=== PATIENT | female | born 1950 | race Caucasian/White ===

== ENCOUNTER 2016-12-31 00:32 | Emergency (ER) | payer OTHER ==
[2016-12-31] MEDS: ACETAMINOPHEN 500 MG TABLET PO STA (00:54)
[2016-12-31] MEDS: ONDANSETRON ODT 4 MG TABLET TL STA (00:55)
--- NOTE | 2016-12-31 00:56 | ED Physician Documentation ---
PD HPI URI - Stated complaint Stated Complaint: VOMITING - Chief complaint Chief Complaint: General - History obtained from History obtained from: Patient, Family - History of Present Illness Timing - onset: How many days ago (2) Timing details: Gradual onset, Still present Associated symptoms: Fever, Chills, Ear pain, Nasal congestion, Rhinorrhea, Sore throat, Dry cough, NVD Contributing factors: Sick contact Improves by: Rest Similar symptoms before: No diagnosis Recently seen: Not recently seen - Additional information Additional information: Patient is a 66 year old female with a history of htn who is presenting to the emergency department for a viral syndrome. Patient states that for the last few days she has had sore throat, cough, diarrhea, and nausea. Patient states that her nephew has been sick at home with similar symptoms. Patient states that she was worried tonight because when she was trying to swallow it felt like her throat was closing. Patient states that she was stung by a bee yesterday but doesn't have any other symptoms from the bee sting, and didn't have any symptoms yesterday after the sting. Review of Systems Constitutional: reports: Fever, Chills Eyes: denies: Loss of vision, Decreased vision, Photophobia, Irritation Ears: reports: Ear pain. denies: Drainage/discharge, Tinnitus/ringing Nose: reports: Rhinorrhea / runny nose, Congestion, Sinus pressure / pain Throat: reports: Sore throat. denies: Dental pain / toothache, Oral lesions / sores Cardiac: denies: Chest pain / pressure, Palpitations Respiratory: reports: Cough. denies: Wheezing GI: reports: Nausea. denies: Abdominal Pain, Vomiting, Constipation, Diarrhea : denies: Dysuria, Frequency, Hesitancy Skin: denies: Rash, Lesions, Abrasion (s) Musculoskeletal: denies: Neck pain, Back pain, Extremity pain Neurologic: denies: Generalized weakness, Focal weakness, Numbness Immunocompromised: denies: Immunocompromised PD PAST MEDICAL HISTORY - Present Medications Home Medications: Ambulatory Orders Medication Instructions Recorded Confirmed Benzonatate [Tessalon] 100 mg PO TID #20 capsule 12/31/16 Levothyroxine Sodium 50 mcg PO DAILY 12/31/16 12/31/16 Lisinopril 1 tab PO DAILY 12/31/16 12/31/16 Metformin HCl [Metformin HCl ER] 500 mg PO BID 12/31/16 12/31/16 Ondansetron Odt [Zofran] 4 mg TL Q6H PRN #14 tablet 12/31/16 - Allergies Allergies/Adverse Reactions: Allergies Allergy/AdvReac Type Severity Reaction Status Date / Time adhesive tape Allergy Rash Verified 12/31/16 00:51 PD ED PE NORMAL - Vitals Vital signs reviewed: Yes - General General: Alert and oriented X 3, Well developed/nourished - HEENT HEENT: Atraumatic, PERRL - Neck Neck: Supple, no meningeal sign, No adenopathy - Cardiac Cardiac: RRR, No murmur, No rub - Abdomen Abdomen: Soft, Non tender, Non distended - Derm Derm: Normal color, Warm and dry, No rash - Extremities Extremities: No deformity, No edema, No calf tenderness / cord - Neuro Neuro: Alert and oriented X 3, No motor deficit, No sensory deficit, Normal speech PD ED PE EXPANDED - HEENT HEENT: R TM red, L TM red, Nasal congestion, Moist mucous membranes, Pharynx normal. No: Rhinorrhea, Pharyngeal erythema, Swollen tonsils, Tonsillar exudate , Soft palate petecchiae - Psych Psych: Anxious Results - Vitals Vitals: Vital Signs - 24 hr 12/31/16 00:40 Temperature 37.4 C Heart Rate 114 H Respiratory 20 Rate Blood Pressure 217/97 H O2 Saturation 95 Oxygen O2 Source Room air PD MEDICAL DECISION MAKING - ED course Complexity details: reviewed old records, re-evaluated patient, considered differential, d/w patient, d/w family ED course: Patient was seen and examined at bedside. Patient was anxious but well appearing. Patient was hypertensive but was worried and stated that the cuff was making her arm hurt. Patient was treated with zofran and tylenol. Patient had no episodes of emesis in the emergency department. Patient's symptoms were likely viral in nature so blood work would be non-contributory. patient required no further work up and was stable for discharge with outpatient follow up. Departure - Departure Disposition: 01 Home, Self Care Clinical Impression: Viral syndrome Condition: Good Instructions: ED Viral Syndrome Follow-Up: LISA ANDERSEN [Primary Care Provider] - Within 3 Days Prescriptions: Benzonatate [Tessalon] 100 mg PO TID #20 capsule Ondansetron Odt [Zofran] 4 mg TL Q6H PRN #14 tablet PRN Reason: Nausea / Vomiting Comments: Your symptoms today are likely being caused by a virus. they are normally self limited meaning they should get better on their own. There is no medicine that kills it, only medicine for supportive care. You can take zofran as needed for nausea, tessalon for cough, and tylenol cold and flu as needed for upper respiratory symptoms. You should follow up with your pmd if your symptoms persist for more than the next few days. You may return to the emergency department at any time for new, worsening or uncontrollable symptoms.
[2016-12-31] MEDS ORDERED: ACETAMINOPHEN 500 MG TABLET PO ONE (00:58)
[2016-12-31] MEDS ORDERED: ONDANSETRON ODT 4 MG TABLET ONE (00:58)
[2016-12-31 01:31] VITALS: BP 167/96
== END 2016-12-31 01:34 | disposition home or self-care (01) ==
LOC: ED 00:32
DX: B34.9 Viral infection, unspecified (principal); I10 Essential (primary) hypertension
CPT/HCPCS: 99283